=== PATIENT | female | born 1970 | race Caucasian/White ===

== ENCOUNTER 2017-03-08 17:57 | Emergency (ER) | payer OTHER ==
[2017-03-08 16:02] LABS: ASCORBIC ACID (UR NOT ORDER) NEG (NEG); BILIRUBIN, URINE NEGATIVE (NEG); ER URINALYSIS TAT 0 Hrs 18 Mins; KETONE, URINE NEGATIVE (NEG); LEUKOCYTE ESTERASE(NOT OR NEG (NEG); NITRITE (URINE) NEG (NEG); WBC (NOT ORDERED) (RFLEX) 2 (0-5)
[~2017-03-08 17:57] MED LIST: AMB10 PO; ASAB PO; BENTYL10 PO; BENTYL20 PO; CLARIT10 PO; EFFEX75 PO; EFFEXOR XR150 MG PO; ESTRADIOL2 MG OR; GYNODIOL2 MG PO; LEVOTHYROXIN25 MCG PO; LORTAB 5 PO; PR25 PO; PRAVAC PO; ROXICODONE15 MG PO; SEROQUEL50 MG PO; T PO; TYLENOL PM PO; ULTRAM50 PO; XANAX1 MG PO; ZOL100 PO
== END 2017-03-08 18:39 | disposition home or self-care (01) ==
LOC: ER 17:57
PROVIDERS: Physician Assistant Medical
PROC: 2W3LX1Z Immobilization of Right Lower Extremity using Splint (ICD-10-PCS; principal; 2017-03-08)
DX: S82.401A Unspecified fracture of shaft of right fibula, initial encounter for closed fracture (principal); M54.9 Dorsalgia, unspecified; G89.29 Other chronic pain; J02.9 Acute pharyngitis, unspecified; F41.9 Anxiety disorder, unspecified; F17.200 Nicotine dependence, unspecified, uncomplicated; Z91.013 Allergy to seafood; Z79.899 Other long term (current) drug therapy; X58.XXXA Exposure to other specified factors, initial encounter
CPT/HCPCS: 73590-RT; 73630-RT; 81001; 99284